=== PATIENT | female | born 1990 | race Caucasian/White ===

== ENCOUNTER 2017-10-04 09:25 | Outpatient (CLI) | payer OTHER ==
[2017-10-04 09:49] VITALS: BP 108/68
== END 2017-10-04 10:30 | disposition home or self-care (01) ==
LOC: LDRP-OP 09:25 → 2WEST 09:26 → LDRP-OP 01-26 11:23
DX: O26.893 Other specified pregnancy related conditions, third trimester (principal); Z3A.28 28 weeks gestation of pregnancy; M54.5 Low back pain
CPT/HCPCS: 59025; G0378